=== PATIENT | male | born 1995 | race American Indian/Alaskan Native ===

== ENCOUNTER 2023-08-30 04:02 | Emergency (ER) | payer OTHER ==
[2023-08-30 05:07] LABS: BASOPHILS PERCENT AUTO 0.2 % (0.0-1.0); EOSINOPHILS PERCENT AUTO 1.7 % (1.0-3.0); HEMATOCRIT 46.4 % (40.0-54.0); HEMOGLOBIN 15.4 g/dL (14.0-18.0); LYMPHOCYTES PERCENT AUTO 41.6 % (20.5-50.1); MEAN CORPUSCULAR HEMOGLOBIN 30.4 pg (27.0-34.0); MEAN CORPUSCULAR HGB CONC 33.2 g/dL (33.0-35.0); MEAN CORPUSCULAR VOLUME 91.7 fL (80-100); MONOCYTES PERCENT AUTO 7.4 % (2-8); NEUTROPHILS PERCENT AUTO 49.1 % (42.2-75.2); PLATELET COUNT,PLT 282 10^3/uL (150-450); RED BLOOD CELL COUNT 5.06 10^6/uL (4.6-6.2); WHITE BLOOD CELL COUNT,WBC 6.5 10^3/uL (5.0-10.0)
== END 2023-08-30 06:28 | disposition home or self-care (01) ==
LOC: DL.ED 04:02
DX: K60.0 Acute anal fissure (principal); K62.5 Hemorrhage of anus and rectum; F17.200 Nicotine dependence, unspecified, uncomplicated
CPT/HCPCS: 36415; 82272; 85025; 99283; 99284

== ENCOUNTER 2023-10-27 04:04 | Emergency (ER) | payer OTHER ==
[2023-10-27] MEDS: Lidocaine 1% 5 ML VIAL INJECT ONE (04:16)
== END 2023-10-27 04:37 | disposition left against medical advice (07) ==
LOC: DL.ED 04:04
DX: S01.81XA Laceration without foreign body of other part of head, initial encounter (principal); W26.0XXA Contact with knife, initial encounter
CPT/HCPCS: 12002; 12013; 99282; 99283; J3490

== ENCOUNTER 2024-06-27 18:15 | Emergency (ER) | payer MEDICAID, OTHER ==
[2024-06-27] MEDS: cefTRIAXone 1 GM, Lidocaine 1% 2.1 ML IM ONE (18:53)
== END 2024-06-27 18:45 | disposition home or self-care (01) ==
LOC: DL.ED 18:15
DX: H66.002 Acute suppurative otitis media without spontaneous rupture of ear drum, left ear (principal)
CPT/HCPCS: 96372; 99282; 99283; J0696; J2003

== ENCOUNTER 2024-07-28 20:47 | Emergency (ER) | payer MEDICAID, OTHER ==
[2024-07-28] MEDS: Take Home: LORazepam 1 MG Tab, 2 Tab Pack PO ONE (21:30)
[2024-07-28 22:02] LABS: AMPHETAMINES,URINE NEGATIVE (NEGATIVE); BARBITURATES,URINE NEGATIVE (NEGATIVE); BENZODIAZEPINE,URINE NEGATIVE (NEGATIVE); MDMA (ECSTASY), URINE NEGATIVE (NEGATIVE); METHADONE,URINE NEGATIVE (NEGATIVE); METHAMPHETAMINES,URINE POSITIVE (NEGATIVE); OPIATES,URINE NEGATIVE (NEGATIVE); OXYCODONE,URINE NEGATIVE (NEGATIVE); PHENCYCLIDINE,URINE NEGATIVE (NEGATIVE); TCA,URINE NEGATIVE (NEGATIVE)
== END 2024-07-28 23:43 | disposition home or self-care (01) ==
LOC: DL.ED 20:47
DX: F15.10 Other stimulant abuse, uncomplicated (principal); Z79.899 Other long term (current) drug therapy
CPT/HCPCS: 70450; 80305; 99283; 99284; A9270